=== PATIENT | female | born 1935 | race Caucasian/White ===

== ENCOUNTER 2019-01-18 20:14 | Inpatient (IN) | payer MEDICARE, MEDICAID ==
[~2019-01-18] VITALS: Ht 160 cm; Wt 54.4 kg
[2019-01-18] MEDS ORDERED: DIVA250T4 PO (20:43)
[2019-01-18] MEDS ORDERED: RIVA1PAT PO (20:43)
[2019-01-18] MEDS ORDERED: TEMA15CA PO (20:43)
[2019-01-18] MEDS ORDERED: CLON0.5T12 PO (20:43)
[2019-01-18] MEDS ORDERED: ACET-2154 PO (20:43)
[2019-01-18 20:45] LABS: BASOPHILS % (AUTO) 0.3 % (0.0-2.0); EOSINOPHILS # (AUTO) 0.1 K/uL (0.0-0.7); EOSINOPHILS % (AUTO) 1.1 % (0.0-7.0); HEMATOCRIT 41.3 % (31.2-41.9); HEMOGLOBIN 13.5 g/dL (10.9-14.3); LYMPHOCYTES # (AUTO) 2.1 K/uL (20.0-40.0); LYMPHOCYTES % (AUTO) 27.3 % (20.5-51.5); MEAN CORPUSCULAR HEMOGLOBIN 31.5 uug (24.7-32.8); MEAN CORPUSCULAR HGB CONC 33 g/dL (32.3-35.6); MEAN CORPUSCULAR VOLUME 96.2 fL (75.5-95.3); MONOCYTES # (AUTO) 0.8 K/uL (2.0-10.0); NEUTROPHILS # (AUTO) 4.8 K/uL (1.8-8.9); NEUTROPHILS % (AUTO) 61.3 % (38.5-71.5); PLATELET COUNT (AUTO) 310 K/uL (179-408); WHITE BLOOD COUNT (AUTO) 7.8 K/uL (3.8-11.8)
[2019-01-18 20:51] LABS: CARBON DIOXIDE 29 mmol/L (21-32); CHLORIDE 104 mmol/L (98-107); CREATININE 0.7 mg/dL (0.6-1.3); GLUCOSE 117 mg/dL (74-106); UREA NITROGEN, BLOOD 18 mg/dL (7-18)
[2019-01-18 20:57] LABS: ACETAMINOPHEN < 2.0 ug/mL (10-30); ALANINE AMINOTRANSFERASE 14 U/L (14-59); ALKALINE PHOSPHATASE 69 U/L (50-136); ASPARTATE AMINOTRANSFERASE 18 U/L (15-37); BILIRUBIN,DIRECT 0.1 mg/dL (0.0-0.2); BILIRUBIN,TOTAL 0.3 mg/dL (0.2-1.0)
[2019-01-18 20:59] LABS: ETHANOL < 3 MG/DL (0-0)
[2019-01-18 22:00] VITALS: BP 129/79
[2019-01-18] MEDS ORDERED: TEMAZEPAM 7.5 MG CAPSULE PO PRN (22:15)
[2019-01-18] MEDS ORDERED: BLOOD SUGAR DIAGNOSTIC 1 EACH STRIP VI ONE (22:15)
[2019-01-18] MEDS ORDERED: LORAZEPAM 0.5 MG TABLET PO PRN (22:15)
[2019-01-18] MEDS ORDERED: MAGNESIUM HYDROXIDE 30 ML LIQUID UDC PO PRN (22:15)
[2019-01-18] MEDS ORDERED: MAG HYDROX/AL HYDROX/SIMETH 30 ML LIQUID UDC PO PRN (22:15)
[2019-01-18] MEDS ORDERED: ACETAMINOPHEN 325 MG TABLET PO PRN (22:15)
[2019-01-19 08:01] LABS: BASOPHILS % (AUTO) 0.4 % (0.0-2.0); EOSINOPHILS # (AUTO) 0.2 K/uL (0.0-0.7); EOSINOPHILS % (AUTO) 2.8 % (0.0-7.0); HEMATOCRIT 38.3 % (31.2-41.9); HEMOGLOBIN 12.9 g/dL (10.9-14.3); LYMPHOCYTES # (AUTO) 1.7 K/uL (20.0-40.0); LYMPHOCYTES % (AUTO) 24.7 % (20.5-51.5); MEAN CORPUSCULAR HEMOGLOBIN 32.5 uug (24.7-32.8); MEAN CORPUSCULAR HGB CONC 34 g/dL (32.3-35.6); MEAN CORPUSCULAR VOLUME 96.7 fL (75.5-95.3); MONOCYTES # (AUTO) 0.9 K/uL (2.0-10.0); NEUTROPHILS % (AUTO) 59.1 % (38.5-71.5); PLATELET COUNT (AUTO) 293 K/uL (179-408); RED BLOOD CELL COUNT(AUTO) 3.97 MIL/uL (3.63-4.92); WHITE BLOOD COUNT (AUTO) 6.8 K/uL (3.8-11.8)
[2019-01-19 08:13] LABS: ALANINE AMINOTRANSFERASE 13 U/L (14-59); ALKALINE PHOSPHATASE 61 U/L (50-136); ASPARTATE AMINOTRANSFERASE 18 U/L (15-37); BILIRUBIN,TOTAL 0.5 mg/dL (0.2-1.0); CARBON DIOXIDE 27 mmol/L (21-32); CHLORIDE 105 mmol/L (98-107); CREATININE 0.7 mg/dL (0.6-1.3); GLUCOSE 82 mg/dL (74-106); POTASSIUM 4.2 mmol/L (3.5-5.1); TOTAL PROTEIN, SERUM 6.6 g/dL (6.4-8.2); UREA NITROGEN, BLOOD 16 mg/dL (7-18)
[2019-01-19 08:38] VITALS: BP 119/70
[2019-01-19] MEDS ORDERED: HALOPERIDOL LACTATE 5 MG/1 ML VIAL IM ONE (13:45)
[2019-01-19] MEDS ORDERED: LORAZEPAM 2 MG/1 ML VIAL IM ONE (13:45)
[2019-01-19 20:11] VITALS: BP 116/70
[2019-01-19] MEDS: DIVALPROEX 250 MG TABLET.DR PO SCH (20:18)
[2019-01-19] MEDS: RIVASTIGMINE TARTRATE 1.5 MG CAPSULE PO SCH (20:18)
[2019-01-19] MEDS: risperiDONE 1 MG TABLET PO SCH (20:19)
[2019-01-20 07:30] VITALS: BP 118/67
[2019-01-20] MEDS: risperiDONE 1 MG TABLET PO SCH ×2 (09:08→21:00)
[2019-01-20] MEDS: RIVASTIGMINE TARTRATE 1.5 MG CAPSULE PO SCH ×2 (09:09→21:00)
[2019-01-20] MEDS: DIVALPROEX 250 MG TABLET.DR PO SCH ×2 (09:09→21:00)
[2019-01-20 15:02] VITALS: BP 122/69
[2019-01-20 20:13] VITALS: BP 119/73
[2019-01-21 07:30] VITALS: BP 129/74
[2019-01-21] MEDS: RIVASTIGMINE TARTRATE 1.5 MG CAPSULE PO SCH ×2 (09:55→20:07)
[2019-01-21] MEDS: DIVALPROEX 250 MG TABLET.DR PO SCH ×2 (09:55→20:07)
[2019-01-21] MEDS: risperiDONE 1 MG TABLET PO SCH ×2 (09:55→20:07)
[2019-01-21 15:23] VITALS: BP 111/61
[2019-01-21 20:10] VITALS: BP 110/62
[2019-01-22 07:18] LABS: *BILIRUBIN,URIN NEGATIVE (NEGATIVE); *BLOOD, URINE NEGATIVE (NEGATIVE); *CLARITY,URINE CLEAR (CLEAR); *COLOR,URINE YELLOW (YELLOW); *KETONES,URINE NEGATIVE (NEGATIVE); *UROBILINOGEN,URINE 0.2 E.U./dl (NORMAL); LEUKOCYTE ESTERASE ,URINE 1+ (NEGATIVE); NITRITE, URINE NEGATIVE (NEGATIVE); UGLUCOSE NEGATIVE (NEGATIVE)
[2019-01-22 07:30] VITALS: BP 102/66
[2019-01-22 08:24] LABS: RBC,URINE 0-3 /HPF (0-3)
[2019-01-22 08:25] LABS: BACTERIA,URINE MANY /HPF (NONE SEEN); WBC,URINE 20-50 /HPF (0-3)
[2019-01-22 08:26] LABS: SQUAMOUS EPITHELIAL CELL,UR FEW /HPF (NONE SEEN)
[2019-01-22] MEDS: risperiDONE 1 MG TABLET PO SCH (08:56)
[2019-01-22] MEDS: RIVASTIGMINE TARTRATE 1.5 MG CAPSULE PO SCH ×2 (08:56→20:08)
[2019-01-22] MEDS: DIVALPROEX 250 MG TABLET.DR PO SCH ×2 (08:56→20:08)
[2019-01-22] MEDS: CEphaleXIN 500 MG CAPSULE PO SCH ×2 (11:27→17:04)
[2019-01-22 15:04] VITALS: BP 97/51
[2019-01-22 20:00] VITALS: BP 112/68
[2019-01-22] MEDS: risperiDONE 0.5 MG TABLET PO SCH (20:08)
[2019-01-23] MEDS: RIVASTIGMINE TARTRATE 1.5 MG CAPSULE PO SCH ×2 (08:23→20:08)
[2019-01-23] MEDS: CEphaleXIN 500 MG CAPSULE PO SCH ×2 (08:24→16:56)
[2019-01-23] MEDS: risperiDONE 0.5 MG TABLET PO SCH ×2 (08:24→20:08)
[2019-01-23] MEDS: DIVALPROEX 250 MG TABLET.DR PO SCH ×2 (08:24→20:08)
[2019-01-23 09:14] VITALS: BP 93/44
[2019-01-23 15:32] VITALS: BP 99/59
[2019-01-23 19:55] VITALS: BP 112/66
[2019-01-24 07:30] VITALS: BP 136/61
[2019-01-24] MEDS: DIVALPROEX 250 MG TABLET.DR PO SCH ×2 (08:49→20:23)
[2019-01-24] MEDS: risperiDONE 0.5 MG TABLET PO SCH ×2 (08:49→20:23)
[2019-01-24] MEDS: CEphaleXIN 500 MG CAPSULE PO SCH ×2 (08:49→16:10)
[2019-01-24] MEDS: RIVASTIGMINE TARTRATE 1.5 MG CAPSULE PO SCH ×2 (08:49→20:23)
[2019-01-24 15:09] VITALS: BP 99/54
[2019-01-24 20:27] VITALS: BP 113/61
[2019-01-24] MEDS ORDERED: RIVASTIGMINE TARTRATE 1.5 MG CAPSULE PO SCH (21:00)
[2019-01-25 08:12] VITALS: BP 111/66
[2019-01-25] MEDS: CEphaleXIN 500 MG CAPSULE PO SCH ×2 (10:18→17:11)
[2019-01-25] MEDS: DIVALPROEX 250 MG TABLET.DR PO SCH ×3 (10:18→17:11)
[2019-01-25] MEDS: risperiDONE 0.5 MG TABLET PO SCH ×2 (10:18→20:15)
[2019-01-25 15:54] VITALS: BP 91/53
[2019-01-25] MEDS: RIVASTIGMINE TARTRATE 1.5 MG CAPSULE PO SCH (20:15)
[2019-01-25 22:00] VITALS: BP 100/72
[2019-01-26 07:30] VITALS: BP 93/48
[2019-01-26] MEDS: RIVASTIGMINE TARTRATE 1.5 MG CAPSULE PO SCH ×2 (08:09→20:07)
[2019-01-26] MEDS: CEphaleXIN 500 MG CAPSULE PO SCH ×2 (08:09→17:08)
[2019-01-26] MEDS: DIVALPROEX 250 MG TABLET.DR PO SCH ×3 (08:09→17:08)
[2019-01-26] MEDS: risperiDONE 0.5 MG TABLET PO SCH ×2 (08:09→20:07)
[2019-01-26 15:27] VITALS: BP 117/68
[2019-01-26 19:43] VITALS: BP 104/47
[2019-01-27 07:42] VITALS: BP 116/68
[2019-01-27] MEDS: RIVASTIGMINE TARTRATE 1.5 MG CAPSULE PO SCH ×2 (08:05→21:00)
[2019-01-27] MEDS: risperiDONE 0.5 MG TABLET PO SCH ×2 (08:05→20:36)
[2019-01-27] MEDS: CEphaleXIN 500 MG CAPSULE PO SCH ×2 (08:06→16:08)
[2019-01-27] MEDS: DIVALPROEX 250 MG TABLET.DR PO SCH ×3 (08:06→16:08)
[2019-01-27 15:02] VITALS: BP 100/68
[2019-01-27 20:27] VITALS: BP 96/58
[2019-01-28 07:44] VITALS: BP 98/58
[2019-01-28] MEDS: DIVALPROEX 250 MG TABLET.DR PO SCH ×4 (09:00→17:33)
[2019-01-28] MEDS: risperiDONE 0.5 MG TABLET PO SCH ×3 (09:00→20:16)
[2019-01-28] MEDS: RIVASTIGMINE TARTRATE 1.5 MG CAPSULE PO SCH ×3 (09:00→20:15)
[2019-01-28] MEDS: CEphaleXIN 500 MG CAPSULE PO SCH ×2 (09:28→17:33)
[2019-01-28 16:51] VITALS: BP 112/62
[2019-01-29 07:30] VITALS: BP 97/47
[2019-01-29] MEDS: DIVALPROEX 250 MG TABLET.DR PO SCH ×2 (09:13→12:08)
[2019-01-29] MEDS: RIVASTIGMINE TARTRATE 1.5 MG CAPSULE PO SCH (09:13)
[2019-01-29] MEDS: risperiDONE 0.5 MG TABLET PO SCH (09:14)
== END 2019-01-29 15:17 | DRG 885 ==
LOC: ER 20:16 → GPS 21:55
PROVIDERS: ADMIT Psychiatry & Neurology Psychiatry; ATTEND Nurse Practitioner Acute Care
DX: F29 Unspecified psychosis not due to a substance or known physiological condition (principal); G93.41 Metabolic encephalopathy; N39.0 Urinary tract infection, site not specified; E44.1 Mild protein-calorie malnutrition; E78.5 Hyperlipidemia, unspecified; F39 Unspecified mood [affective] disorder; B35.1 Tinea unguium; B96.20 Unspecified Escherichia coli [E. coli] as the cause of diseases classified elsewhere; F41.9 Anxiety disorder, unspecified; F03.90 Unspecified dementia, unspecified severity, without behavioral disturbance, psychotic disturbance, mood disturbance, and anxiety; R91.1 Solitary pulmonary nodule; E03.9 Hypothyroidism, unspecified
CPT/HCPCS: 36415; 71045; 80164; 84443; 85025; 87077; 87086; A4663; G0480; G0480-TC; J1630; J2060; J3490